=== PATIENT | female | born 1985 | race Caucasian/White ===

== ENCOUNTER 2018-10-11 10:37 | Inpatient (IN) | payer OTHER ==
[2018-10-11] MEDS ORDERED: Lidocaine 1% (PF) 30 ML VIAL SC PRN (11:27)
[2018-10-11] MEDS ORDERED: Docusate 100 MG CAP PO PRN (11:27)
[2018-10-11] MEDS ORDERED: Diphenoxylate HCl/Atropine Tablet PO PRN ×2 (11:27)
[2018-10-11] MEDS ORDERED: Ondansetron PF 4 MG/2 ML Vial IVP PRN ×3 (11:27→17:50)
[2018-10-11] MEDS ORDERED: Misoprostol 200 MCG TAB PR PRN (11:27)
[2018-10-11] MEDS ORDERED: HYDROcodone/Acetaminophen 5/325 mg Tablet PO PRN ×2 (11:27)
[2018-10-11] MEDS ORDERED: Ibuprofen 800 MG TAB PO PRN (11:27)
[2018-10-11] MEDS ORDERED: Acetaminophen 500 MG TAB PO PRN (11:27)
[2018-10-11] MEDS ORDERED: Butorphanol Tartrate 1 MG/ML VIAL SLOW IVP PRN (11:27)
[2018-10-11] MEDS ORDERED: Promethazine HCl 25 MG/ML VIAL IM PRN ×2 (11:27→15:24)
[2018-10-11] MEDS ORDERED: Zolpidem Tartrate 5 MG TAB PO PRN ×2 (11:27→23:08)
[2018-10-11] MEDS ORDERED: NS w/ Oxytocin 10 units 500 ML IV SCH (11:30)
[2018-10-11] MEDS ORDERED: Penicillin G Potassium 5 MILL.UNITS in Sodium Chloride 0.9% 100 ML IVPB SCH (11:30)
[2018-10-11] MEDS ORDERED: Penicillin G 2.5 MILL.units 2.5 MILL.UNITS in Premix Bag 1 BAG IVPB SCH (11:30)
[2018-10-11] MEDS: Lactated Ringer's 1,000 ML IV SCH ×2 (11:50→14:26)
[2018-10-11] MEDS ORDERED: Bupivacaine 0.25% HCL 30 ML VIAL ONE (11:52)
[2018-10-11] MEDS ORDERED: Clindamycin/D5W 900 mg/50 ml Premix Bag ONE (11:55)
[2018-10-11] MEDS ORDERED: Oxytocin 10 UNITS/ML VIAL ONE ×2 (11:55→17:11)
[2018-10-11] MEDS ORDERED: NS w/ Oxytocin 10 units 500 ML ONE (11:56)
[2018-10-11 12:30] LABS: Hemoglobin 13.8 g/dL (12.0-16.0); Mean Corpuscular HGB CONC 32.8 g/dL (32.0-36.0); Mean Corpuscular Hemoglobin 32.3 pg (27.0-31.0); Mean Corpuscular Volume 98.4 fL (78.0-98.0); Mean Platelet Volume 8.4 fL (7.4-10.4); Platelet Count 182 thou/uL (130-400); RBC Distribution Width 12.7 % (11.5-14.5); Red Blood Cell (RBC) Count 4.28 mill/uL (4.20-5.40)
[2018-10-11 13:28] LABS: HBSAg Index 0.16 S/CO (0-0.99); Hep B Surf Ag Non-Reactive S/CO (NonReactive); Syphilis Antibody Nonreactive (Nonreactive); Syphilis Antibody Index 0.03 S/CO (<1.00 Non-Reactive)
[2018-10-11] MEDS ORDERED: Clindamycin/D5W 900 MG in Premix Bag 1 BAG IVPB SCH (14:00)
[2018-10-11] MEDS ORDERED: Lidocaine 1.5%/Epinephrine 1:200,000 5 ML AMPUL IJ ONE (14:08)
[2018-10-11] MEDS ORDERED: Fentanyl 4 mcg/Bup 0.1% Cadd 100 ML ONE (14:30)
[2018-10-11 14:42] VITALS: BMI 25.7
[2018-10-11] MEDS ORDERED: Lactated Ringer's 500 ML IV PRN (15:24)
[2018-10-11] MEDS ORDERED: ePHEDrine/0.9% NaCl/PF SYRINGE 50 mg/10 ml SLOW IVP PRN (15:24)
[2018-10-11] MEDS ORDERED: Naloxone HCl 0.4 mg/ml Vial IVP PRN ×2 (15:24)
[2018-10-11] MEDS ORDERED: Acetaminophen 325 MG TAB PO PRN (15:24)
[2018-10-11] MEDS ORDERED: Eucerin (Mineral Oil/Petrolatum,White) 30 gm Jar TOP PRN (15:24)
[2018-10-11] MEDS ORDERED: diphenhydrAMINE 50 MG/ML VIAL IVP PRN (15:24)
[2018-10-11] MEDS ORDERED: Fentanyl 4 mcg/Bupivacaine 0.1% Cassette 100 ML EPIDURAL SCH (15:30)
[2018-10-11] MEDS ORDERED: Communication Order-Pharmacy FS SCH (15:30)
[2018-10-11] MEDS: NS / Oxytocin 40 units/1000ml 1,000 ML IV PRN ×2 (16:46→18:50)
[2018-10-11] MEDS ORDERED: Misoprostol 200 MCG TAB ONE ×2 (16:50→17:11)
[2018-10-11] MEDS ORDERED: Methylergonovine 0.2 MG/ML VIAL ONE (17:11)
[2018-10-11] MEDS ORDERED: Carboprost 250 MCG/ML AMP ONE (17:11)
[2018-10-11] MEDS ORDERED: Preparation H Ointment 28 GM TUBE PR PRN (17:50)
[2018-10-11] MEDS ORDERED: diphenhydrAMINE 25 MG CAP PO PRN (17:50)
[2018-10-11] MEDS ORDERED: Misoprostol 200 MCG TAB VAG PRN (17:50)
[2018-10-11] MEDS ORDERED: Adacel (T-DAP) 0.5 ML SYRINGE IM ONE (17:50)
[2018-10-11] MEDS ORDERED: Bisacodyl 10 MG SUPP PR PRN (17:50)
[2018-10-11] MEDS ORDERED: Benzocaine/Menthol 20-0.5% 60 ML CAN TOP PRN ×2 (17:50→23:06)
[2018-10-11] MEDS ORDERED: Milk Of Magnesia 30 ML UDCUP PO PRN (17:50)
[2018-10-11] MEDS ORDERED: Lanolin Ointment 7 GM TUBE TOP PRN (17:50)
[2018-10-11] MEDS ORDERED: Methylergonovine 0.2 MG/ML VIAL IM PRN (17:50)
[2018-10-11] MEDS ORDERED: NS / Oxytocin 40 units/1000ml 1,000 ML IV SCH (18:00)
[2018-10-11] MEDS: Docusate Calcium (SURFAK) 240 MG CAP PO SCH (22:31)
[2018-10-11] MEDS: Ibuprofen 800 MG TAB PO SCH (22:31)
[2018-10-11] MEDS ORDERED: Acetaminophen/Codeine 30-300mg Tablet PO PRN ×2 (23:08)
[2018-10-12] MEDS: Ibuprofen 800 MG TAB PO SCH ×3 (05:29→20:44)
[2018-10-12] MEDS: Ferrous Sulfate 325 MG TAB PO SCH ×2 (07:23→17:49)
[2018-10-12] MEDS: Prenatal Vitamin 1 TAB PO SCH (08:39)
[2018-10-12] MEDS: Docusate Calcium (SURFAK) 240 MG CAP PO SCH ×2 (08:39→20:44)
[2018-10-13] MEDS: Ibuprofen 800 MG TAB PO SCH (05:55)
[2018-10-13] MEDS: Ferrous Sulfate 325 MG TAB PO SCH (07:31)
[2018-10-13 08:10] VITALS: BP 108/73; TEMP 97.9
[2018-10-13] MEDS: Docusate Calcium (SURFAK) 240 MG CAP PO SCH (09:27)
[2018-10-13] MEDS: Prenatal Vitamin 1 TAB PO SCH (09:27)
== END 2018-10-13 10:10 | disposition home or self-care (01) | DRG 806 ==
LOC: L&D/OP 10:37 → L&D 10:37 → UNDOADMIN 10:50 → 3SW 21:48 → EDSTATUS 10-16 10:49
PROVIDERS: ADMIT Obstetrics & Gynecology; ATTEND Obstetrics & Gynecology
PROC: 10E0XZZ Delivery of Products of Conception, External Approach (ICD-10-PCS; principal; 2018-10-11)
PROC: 0KQM0ZZ Repair Perineum Muscle, Open Approach (ICD-10-PCS; 2018-10-11)
PROC: 0W8NXZZ Division of Female Perineum, External Approach (ICD-10-PCS; 2018-10-11)
DX: O69.1XX0 Labor and delivery complicated by cord around neck, with compression, not applicable or unspecified (principal); O72.1 Other immediate postpartum hemorrhage; Z37.0 Single live birth; O70.1 Second degree perineal laceration during delivery; Z3A.39 39 weeks gestation of pregnancy
CPT/HCPCS: 36415; 51702; 85027; 86780; 86850; 86900; 86901; 87340; 90715; J2210; J2590; J3490; S0020

== ENCOUNTER 2019-02-01 12:47 | Outpatient (CLI) | payer OTHER ==
--- NOTE | 2019-02-01 14:26 | MRI ---
PRE AND POSTCONTRAST ENHANCED MRI IMAGES BRAIN: HISTORY: Patient with previous intracranial neoplasm. MR is obtained on 02/01/2019. Comparison made to a previo us exam from 02/17/2019. FINDINGS: Multiplanar multisequence pre and postcontrast enhanced MRI images of brain demonstrate encephalomala cic changes seen in the right frontal and anterior temporal lobes. This is unchanged since previous comparison exam. Adjacent areas of gliosis seen. No evidence of tumor recurrence or significant inter coreen changes seen. IMPRESSION: Stable MRI appearance of the brain with postsurgical and gliotic changes seen. No evidence of acute i ntracranial changes seen. Transcribed Date/Time: 02/01/2019 2:40 PM
== END 2019-02-01 12:48 | disposition home or self-care (01) ==
LOC: TBSIIMAG 12:47
PROVIDERS: ATTEND Neurological Surgery
DX: D32.0 Benign neoplasm of cerebral meninges (principal); I63.311 Cerebral infarction due to thrombosis of right middle cerebral artery; Z98.890 Other specified postprocedural states
CPT/HCPCS: 70553

== ENCOUNTER 2021-02-24 08:11 | Outpatient (CLI) | payer BC ==
[2021-02-24] MEDS ORDERED: Magnevist 469MG/ML 20 ML VIAL ONE (11:06)
== END 2021-02-24 08:12 | disposition home or self-care (01) ==
LOC: MRI 08:11
PROVIDERS: ATTEND Neurological Surgery
DX: I63.311 Cerebral infarction due to thrombosis of right middle cerebral artery (principal); D32.0 Benign neoplasm of cerebral meninges; G93.89 Other specified disorders of brain; Z98.890 Other specified postprocedural states
CPT/HCPCS: 70553; A9579